=== PATIENT | female | born 1990 | race African-American/Black ===

== ENCOUNTER 2017-11-04 19:08 | Emergency (ER) | payer SELFPAY ==
[~2017-11-04] VITALS: Ht 160 cm; Wt 82.7 kg
[2017-11-04 19:44] VITALS: Ht 160 cm; Wt 82.7 kg
[2017-11-04] MEDS ORDERED: VOLTAREN75 MG PO (22:23)
[2017-11-04] MEDS ORDERED: DOXYCYCLINE HY100 M2 PO (22:23)
[2017-11-04 22:37] VITALS: BP 118/64
== END 2017-11-04 22:37 | disposition home or self-care (01) ==
LOC: D.ER 19:08
DX: L03.317 Cellulitis of buttock (principal); F17.200 Nicotine dependence, unspecified, uncomplicated

== ENCOUNTER 2018-01-31 21:13 | Emergency (ER) | payer BC ==
[~2018-01-31] VITALS: Ht 160 cm; Wt 81.8 kg
[~2018-01-31 21:13] MED LIST: DOXYCYCLINE HY100 M2 PO; VOLTAREN75 MG PO
[2018-01-31 21:35] VITALS: Ht 160 cm; Wt 81.8 kg
[2018-01-31] MEDS ORDERED: AMOXICILLIN500 M1 PO (22:01)
[2018-01-31] MEDS ORDERED: TYLENOL W/CODEI1 TAB PO (22:01)
[2018-01-31 22:53] VITALS: BP 131/75
== END 2018-01-31 22:54 | disposition home or self-care (01) ==
LOC: D.ER 21:13
DX: K04.7 Periapical abscess without sinus (principal); K13.79 Other lesions of oral mucosa; D57.1 Sickle-cell disease without crisis